=== PATIENT | male | born 1955 | race Caucasian/White ===

== ENCOUNTER 2016-09-25 14:17 | Outpatient (CLI) | payer OTHER ==
[~2016-09-25] VITALS: Ht 175.3 cm; Wt 74.1 kg
[2016-09-25 14:28] VITALS: BP_SYST 214; BP_SYST 227; BP_DIAS 89; BP_DIAS 91; PULSE 88; RESP 18; Ht 175.3 cm; Wt 74.1 kg
[2016-09-25] MEDS ORDERED: ATOR40TA68 PO (14:47)
[2016-09-25] MEDS ORDERED: CARV6.2579 PO (14:47)
[2016-09-25] MEDS ORDERED: ASPI-664 PO (14:47)
[2016-09-25] MEDS ORDERED: PANT40TA4 PO (14:47)
[2016-09-25] MEDS ORDERED: GLIP5TAB13 PO (14:47)
[2016-09-25] MEDS ORDERED: IPRA4AER INHALATION (14:47)
[2016-09-25] MEDS ORDERED: SITA1TAB5 PO (14:47)
[2016-09-25] MEDS ORDERED: AMLO-147 PO (14:47)
--- NOTE | 2016-09-25 14:57 | PN ---
Date/Time of Note Date/Time of Note DATE: 09/25/16 TIME: 14:49 Outpatient Progress Note Chief Complaint Sepsis/diabetes/hypertension/hyperkalemia HPI Sepsis/patient was recently hospitalized with multiple medical problem, no cough expectoration, no fever chill, patient feeling better, Diabetes/no polydipsia polyuria hypoglycemia, patient blood sugar under control , maximum blood sugar is 140, Hypertension/no headache or dizziness or lightheadedness, patient blood pressure significantly elevated, patient states that every time he goes to doctor's office blood pressure is always elevated, patient blood pressure at home is controlled, Hyperkalemia patient did have hyperkalemia in the hospital, and also had a renal insufficiency, patient feels fine at present, no cramps, no weakness or tiredness, Review of Systems Const: No Fever, no chills, no Wt. loss, no Fatigue, normal appetite, no diaphoresis. Eyes: No pain, no discharge, no redness, no visual change, no foreign body. ENT: No pain, no bleeding, no congestion, no sore throat, no dysphagia, no discharge or rhinitis. Lymph: No adenopathy, no tender nodes, no lymphedema. Resp: No SOB, no cough, no sputum, no wheezing, no chest pain. CV: No chest pain, no palpitaions, no KONG, no PND, no edema. GI: Normal appetite, no pain, no nausea, no vomiting, no diarrhea, no blood, no constipation. : No frequency, no urgency, no dysuria, no hematuria, no flank pain, no discharge, no bleeding. Musc: No bone/joint pain, no back pain, no neck pain, no knee pain, no restricted ROM. Skin: No rash, no skin lesions, no erythema, no laceration, no bruising, no pruritus. Neuro: No SMITH, no dizziness, no syncope, no seizure, no focal-weakness. Endo: No polyuria, no polydypsia, no dry-skin, no temp-intolerance. Psych: No hallucinations, no depression, no anxiety, no suicidal ideation. Ext: No edema, no pain, no ulcer, no weakness. Physical Exam General Appearance: A 61 year-old male who appears well-developed, well- nourished, in no acute distress. HEENT: Head normocephalic, atraumatic. Pupils equal, round, reactive to light and accommodate. Sclerae are no jaundice. Nasal turbinates pink without erythema or nasal discharge. Mucous membranes pink and moist without lesions. Oropharynx clear without any exudate or discharge. NECK: Supple. Trachea midline, No thyromegaly, No cervical lymphadenopathy, No mass, No carotid bruits, No JVD, Carotid pulses 2+ bilaterally. PULMONARY: Clear to auscultaion bilaterally, No retractions, Chest expansion symmetric bilaterally, no rales, no ronchi, no dulness on percussion. CARDIAC: Normal SI and S2, Regular rate and rythm, no murmur, gallop, or rub. GASTROINTESTINAL: Abdomen is soft, non-tender, Non Rigid, No distention, Positive bowel sounds x4 quadrants, Liver normal. SKIN: Warm, dry, no rash, no bruise, no echmosis. EXTREMITIES: Bilateral lower extremities normal, no edema, no phlabitus, pulse palpable, no contracture. MUSCULOSKELETAL: Spine Normal, Non-tender, Normal range of motion, No swelling, no deformity, no clubbing, or cyanosis, the patient has no edema to bilateral lower extremities, dorsalis pedis pulses palpable bilaterally. NEUROLOGIC: The patient is awake, alert, oriented, responding to yes/no questions appropriately, moving all extremities, cranial nerve intact, normal strenght, normal power, normal coordination, normal gait. Allergies Coded Allergies: No Known Drug Allergies (Verified Allergy, Unknown, 09/25/16) PMH Sepsis/diabetes/hypertension/hyperkalemia/history of A. fib/renal insufficiency/ hypocalcemia/lactic acidosis/UTI/anemia/metabolic acidosis/leukocytosis Social Hx No smoking no drinking, Family Hx Noncontributory Assessment/Plan Impression Sepsis resolved Diabetes Hypertension Hyperkalemia improved Plan Patient education done about diabetes hypertension sepsis and hyperkalemia, discussed about hyperkalemia and associated complication, Patient blood pressure significantly elevated, patient states that every time patient goes to doctor's office patient blood pressure is always elevated, this is happening since he was child, patient has a blood pressure cuff at home, Patient will check the blood pressure at home routinely, and if anything significantly elevated he will call the clinic, patient also advised to continue all the medication from the hospital, patient wants to add atenolol which she was taking at home before, if the blood pressure significantly elevated, and patient will bring the record next visit, Patient has all the medication, does not need any refill, Patient advised if any headache or dizziness to call us immediately, or any significant elevation of the blood pressure to call us, patient very high risk for repeated admission, Medications Home Meds Reported Medications Carvedilol* (Carvedilol*) 6.25 Mg Tablet, 6.25 MG PO BID, #60 TAB 09/25/16 Glipizide* (Glipizide*) 5 Mg Tablet, 5 MG PO DAILY, TAB 09/25/16 Pantoprazole* (Pantoprazole*) 40 Mg Tablet.dr, 40 MG PO AC BREAKFAST, TAB 09/25/16 Atorvastatin* (Atorvastatin*) 40 Mg Tablet, 40 MG PO QHS, #30 TAB 09/25/16 Albuterol/Ipratropium* (Combivent Respimat*) 20-100 Mcg/Inh - 4 Gm Aer.w.adap, 1 PUFF INHALATION QID for SHORTNESS OF BREATH, #1 INHALER 09/25/16 Sitagliptin Phos/Metformin HCl (Janumet 50-1,000 mg Tablet) 1 Each Tablet, 1 EACH PO BID, TAB 09/25/16 Amlodipine Besylate* (Amlodipine Besylate*) 10 Mg Tablet, 10 MG PO DAILY, #30 TAB 09/25/16 Aspirin (Low Dose Aspirin) 81 Mg Tablet.dr, 81 MG PO DAILY, #30 TAB 09/25/16 ANN TREJO MD Sep 25, 2016 14:57
== END 2016-09-25 16:45 | disposition home or self-care (01) ==
LOC: DCC 14:17 → EDBD 15:00 → DCC 16:45
PROVIDERS: ATTEND Internal Medicine
DX: E11.9 Type 2 diabetes mellitus without complications (principal); I10 Essential (primary) hypertension; E87.5 Hyperkalemia; I48.91 Unspecified atrial fibrillation; D64.9 Anemia, unspecified; Z79.82 Long term (current) use of aspirin; Z79.84 Long term (current) use of oral hypoglycemic drugs

== ENCOUNTER 2016-10-04 11:34 | Emergency (ER) | payer OTHER ==
[~2016-10-04] VITALS: Ht 167.6 cm; Wt 73.0 kg
[~2016-10-04 11:34] MED LIST: AMLO-147 PO; ASPI-664 PO; ATOR40TA68 PO; CARV6.2579 PO; GLIP5TAB13 PO; IPRA4AER INHALATION; PANT40TA4 PO; SITA1TAB5 PO
[2016-10-04 11:43] VITALS: Ht 167.6 cm; Wt 73.0 kg
[2016-10-04 12:30] LABS: ADD SCAN DIFF NO
[2016-10-04 12:31] LABS: BASOPHIL # 0.1 10^3/ul (0.0-0.1); BASOPHILS % 0.6 % (0.0-2.0); EOSINOPHILS # 0.3 10^3/ul (0.0-0.5); EOSINOPHILS % 3.9 % (0.0-7.0); HEMATOCRIT 39.1 % (42.0-52.0); HEMOGLOBIN 13.1 g/dl (14.0-18.0); LYMPHOCYTES # 1.6 10^3/ul (0.8-2.9); LYMPHOCYTES % 19.2 % (15.0-51.0); MEAN CORPUSCULAR HEMOGLOBIN 30.6 pg (29.0-33.0); MEAN CORPUSCULAR HGB CONC 33.5 g/dl (32.0-37.0); MEAN CORPUSCULAR VOLUME 91.4 fl (82.0-101.0); MONOCYTE # 0.6 10^3/ul (0.3-0.9); MONOCYTES % 6.8 % (0.0-11.0); NEUTROPHIL # 5.6 10^3/ul (1.6-7.5); NEUTROPHILS % 69.4 % (39.0-77.0); PLATELET COUNT 326 10^3/UL (140-415); RED BLOOD COUNT 4.28 10^6/ul (4.70-6.10); RED CELL DISTRIBUTION WIDTH 12.1 % (11.5-14.5); WHITE BLOOD COUNT 8.1 10^3/ul (4.8-10.8)
[2016-10-04] MEDS ORDERED: ATEN50TA PO (12:52)
[2016-10-04 12:54] LABS: ALBUMIN 5.2 g/dl (3.3-4.9); ALBUMIN/GLOBULIN RATIO 1.48; BILIRUBIN,INDIRECT 0.4 mg/dl (0-1.1); BILIRUBIN,TOTAL 0.4 mg/dl (0.2-1.3); CALCIUM 9.8 mg/dl (8.4-10.2); CREATININE 1.84 mg/dl (0.61-1.24); POTASSIUM 4.9 mmol/L (3.5-5.1); TOTAL PROTEIN 8.7 g/dl (6.1-8.1)
--- NOTE | 2016-10-04 14:08 | ERD ---
ER Documentation Chief Complaint Date/Time DATE: 10/04/16 TIME: 14:05 Chief Complaint Bloating and burping HPI This a 61-year-old male who is complaining that ever since he started taking omeprazole he has been having excessive burping and bloating region. He says is worse after eating. He says he has no abdominal pain whatsoever. He has noted nausea no diarrhea he is having normal bowel movements. He says that her eating he gets a lot of burping and excessive bloating and gas. He says when he was taking probiotics it was helping the symptoms that he has had before in the past. He says he wants to get back on them because he is that this is the same symptoms he had before that was helped by taking probiotics. ROS All systems reviewed and are negative except as per history of present illness. Medications Home Meds Reported Medications Atenolol* (Atenolol*) 50 Mg Tablet, 50 MG PO DAILY, #30 TAB 10/04/16 Carvedilol* (Carvedilol*) 6.25 Mg Tablet, 6.25 MG PO BID, #60 TAB 09/25/16 Glipizide* (Glipizide*) 5 Mg Tablet, 5 MG PO DAILY, TAB 09/25/16 Atorvastatin* (Atorvastatin*) 40 Mg Tablet, 40 MG PO QHS, #30 TAB 09/25/16 Albuterol/Ipratropium* (Combivent Respimat*) 20-100 Mcg/Inh - 4 Gm Aer.w.adap, 1 PUFF INHALATION QID for SHORTNESS OF BREATH, #1 INHALER 09/25/16 Sitagliptin Phos/Metformin HCl (Janumet 50-1,000 mg Tablet) 1 Each Tablet, 1 EACH PO BID, TAB 09/25/16 Amlodipine Besylate* (Amlodipine Besylate*) 10 Mg Tablet, 10 MG PO DAILY, #30 TAB 09/25/16 Aspirin (Low Dose Aspirin) 81 Mg Tablet.dr, 81 MG PO DAILY, #30 TAB 09/25/16 Discontinued Reported Medications Pantoprazole* (Pantoprazole*) 40 Mg Tablet.dr, 40 MG PO AC BREAKFAST, TAB 09/25/16 Allergies Allergies: Coded Allergies: No Known Drug Allergies (Verified Allergy, Unknown, 10/04/16) PMhx/Soc Medical and Surgical Hx: pt denies Medical Hx, pt denies Surgical Hx Hx Alcohol Use: No Hx Substance Use: No Hx Tobacco Use: No Smoking Status: Never smoker FmHx Family History: No coronary disease Physical Exam Vitals Vital Signs Date Time Temp Pulse Resp B/P Pulse Ox O2 Delivery O2 Flow Rate FiO2 10/04/16 11:43 97.3 71 20 208/88 98 Physical Exam Const: Well-developed, well-nourished Head: Atraumatic, normocephalic Eyes: Normal Conjunctiva, PERRLA, EOMI, normal sclera, no nystagmus ENT: Normal External Ears, Nose and Mouth, moist mucus membranes. Neck: Full range of motion. No meningismus, no lymphadenopathy. Resp: Clear to auscultation bilaterally, no wheezing, rhonchi, rales Cardio: Regular rate and rhythm, no murmurs, S1 S2 present Abd: Soft, non tender x 4, non distended. Normal bowel sounds, no guarding or rebound, no pulsitile abdominal masses or bruits Skin: No petechiae or rashes, no ecchymosis , no maculopapular rash Back: No midline or flank tenderness Ext: No cyanosis, or edema, FROM x 4, normal inspection, neurovascularly intact x 4 Neur: Awake and alert, STR 5/5 x 4, sensation intact x 4, no focal findings, cerebellum intact Psych: Normal Mood and Affect Result Diagram: 10/04/16 1200 10/04/16 1200 Results 24 hrs Laboratory Tests Test 10/04/16 12:00 White Blood Count 8.110^3/ul Red Blood Count 4.2810^6/ul Hemoglobin 13.1g/dl Hematocrit 39.1% Mean Corpuscular Volume 91.4fl Mean Corpuscular Hemoglobin 30.6pg Mean Corpuscular Hemoglobin Concent 33.5g/dl Red Cell Distribution Width 12.1% Platelet Count 13014^3/UL Mean Platelet Volume 9.0fl Neutrophils % 69.4% Lymphocytes % 19.2% Monocytes % 6.8% Eosinophils % 3.9% Basophils % 0.6% Nucleated Red Blood Cells % 0.0/100WBC Neutrophils # 5.610^3/ul Lymphocytes # 1.610^3/ul Monocytes # 0.610^3/ul Eosinophils # 0.310^3/ul Basophils # 0.110^3/ul Nucleated Red Blood Cells # 0.010^3/ul Sodium Level 141mmol/L Potassium Level 4.9mmol/L Chloride Level 106mmol/L Carbon Dioxide Level 21mmol/L Anion Gap 19 Blood Urea Nitrogen 17mg/dl Creatinine 1.84mg/dl Glucose Level 249mg/dl Calcium Level 9.8mg/dl Total Bilirubin 0.4mg/dl Direct Bilirubin 0.00mg/dl Indirect Bilirubin 0.4mg/dl Aspartate Amino Transf (AST/SGOT) 28IU/L Alanine Aminotransferase (ALT/SGPT) 48IU/L Alkaline Phosphatase 116IU/L Total Protein 8.7g/dl Albumin 5.2g/dl Globulin 3.50g/dl Albumin/Globulin Ratio 1.48 Procedures/MDM Patient has some renal insufficiency. I will have him follow-up with his primary care physician this week. His lab work looks relatively unremarkable. Will discharge home with a copy of his labs and follow-up with his doctor. He says he will get back on probiotics. He says he will hold the omeprazole for now Departure Diagnosis: Primary Impression: Renal insufficiency Additional Impressions: Belching Abdominal bloating Condition: Stable Patient Instructions: Renal Insufficiency HANNAH DUNN DO Oct 04, 2016 14:08
[2016-10-04 16:38] VITALS: BP 191/86; PULSE 70; RESP 18
== END 2016-10-04 14:30 | disposition home or self-care (01) ==
LOC: E/R 11:34
DX: N28.9 Disorder of kidney and ureter, unspecified (principal); R14.2 Eructation; Z79.82 Long term (current) use of aspirin
CPT/HCPCS: 80053; 85025; Z7502; 99283

== ENCOUNTER 2016-10-06 11:28 | Outpatient (CLI) | payer OTHER ==
[~2016-10-06] VITALS: Ht 167.6 cm; Wt 73.0 kg
[~2016-10-06 11:28] MED LIST changes: +ATEN50TA PO
[2016-10-06 11:39] VITALS: BP 196/88; PULSE 65; RESP 18; Ht 167.6 cm; Wt 73.0 kg
--- NOTE | 2016-10-06 12:01 | PN ---
Date/Time of Note Date/Time of Note DATE: 10/06/16 TIME: 11:54 Outpatient Progress Note Chief Complaint Burping and bloating/diabetes/hypertension/hyperlipidemia HPI Burping and bloating/patient has severe abdominal bloating and gas, and burping , patient has this problem for a while, it got worse with the Protonix, according to the patient and patient was seen in emergency room, Protonix was on hold, patient not taking any simethicone, Diabetes/no pleuritic supple due to hypoglycemia, gastroparesis, Hypertension/no headache or dizziness, lightheadedness, local focal weakness, Hyperlipidemia/no xanthoma, on medication, side effect, Review of Systems Const: No Fever, no chills, no Wt. loss, no Fatigue, normal appetite, no diaphoresis. Eyes: No pain, no discharge, no redness, no visual change, no foreign body. ENT: No pain, no bleeding, no congestion, no sore throat, no dysphagia, no discharge or rhinitis. Lymph: No adenopathy, no tender nodes, no lymphedema. Resp: No SOB, no cough, no sputum, no wheezing, no chest pain. CV: No chest pain, no palpitaions, no KONG, no PND, no edema. GI: Normal appetite, no pain, no nausea, no vomiting, abdominal bloating and sometimes cramps, and burping, no diarrhea, no blood, no constipation. : No frequency, no urgency, no dysuria, no hematuria, no flank pain, no discharge, no bleeding. Musc: No bone/joint pain, no back pain, no neck pain, no knee pain, no restricted ROM. Skin: No rash, no skin lesions, no erythema, no laceration, no bruising, no pruritus. Neuro: No SMITH, no dizziness, no syncope, no seizure, no focal-weakness. Endo: No polyuria, no polydypsia, no dry-skin, no temp-intolerance. Psych: No hallucinations, no depression, no anxiety, no suicidal ideation. Ext: No edema, no pain, no ulcer, no weakness. Physical Exam General Appearance: A 61 year-old male who appears well-developed, well- nourished, in no acute distress. HEENT: Head normocephalic, atraumatic. Pupils equal, round, reactive to light and accommodate. Sclerae are no jaundice. Nasal turbinates pink without erythema or nasal discharge. Mucous membranes pink and moist without lesions. Oropharynx clear without any exudate or discharge. NECK: Supple. Trachea midline, No thyromegaly, No cervical lymphadenopathy, No mass, No carotid bruits, No JVD, Carotid pulses 2+ bilaterally. PULMONARY: Clear to auscultaion bilaterally, No retractions, Chest expansion symmetric bilaterally, no rales, no ronchi, no dulness on percussion. CARDIAC: Normal SI and S2, Regular rate and rythm, no murmur, gallop, or rub. GASTROINTESTINAL: Abdomen is soft, non-tender, Non Rigid, No distention, Positive bowel sounds x4 quadrants, Liver normal. SKIN: Warm, dry, no rash, no bruise, no echmosis. EXTREMITIES: Bilateral lower extremities normal, no edema, no phlabitus, pulse palpable, no contracture. MUSCULOSKELETAL: Spine Normal, Non-tender, Normal range of motion, No swelling, no deformity, no clubbing, or cyanosis, the patient has no edema to bilateral lower extremities, dorsalis pedis pulses palpable bilaterally. NEUROLOGIC: The patient is awake, alert, oriented, responding to yes/no questions appropriately, moving all extremities, cranial nerve intact, normal strenght, normal power, normal coordination, normal gait. Allergies Coded Allergies: No Known Drug Allergies (Verified Allergy, Unknown, 10/04/16) PMH No change Social Hx No change Family Hx No change Assessment/Plan Impression Bloating and burping/anxiety Diabetes Hypertension Hyperlipidemia Renal insufficiency Plan Discussed with the patient in detail about patient's condition, patient has severe and anxiety problem, discussed about medication for anxiety, and habit forming, at present time patient wants to try on his own, Patient also has a lot of burping and flatulence, patient is not taking any medication, Gas-X or simethicone 1 or 2 tablet p.o. 4 times daily for 2 weeks if there is no response patient can follow with the primary care physician, and may start antispasmodic medication, Patient advised to relax, and meditate, patient also has anxiety problem, and that also causes a high blood pressure, patient blood pressure he brought from home is fairly stable except 1 or 2 readings which was 160, Continue all blood pressure medication, Patient will buy Gas-X and will start again today, Patient has slight renal insufficiency, patient to follow with the renal, Control of blood pressure, control weight, control blood sugar, Medications Home Meds Reported Medications Atenolol* (Atenolol*) 50 Mg Tablet, 50 MG PO DAILY, #30 TAB 10/04/16 Carvedilol* (Carvedilol*) 6.25 Mg Tablet, 6.25 MG PO BID, #60 TAB 09/25/16 Glipizide* (Glipizide*) 5 Mg Tablet, 5 MG PO DAILY, TAB 09/25/16 Atorvastatin* (Atorvastatin*) 40 Mg Tablet, 40 MG PO QHS, #30 TAB 09/25/16 Albuterol/Ipratropium* (Combivent Respimat*) 20-100 Mcg/Inh - 4 Gm Aer.w.adap, 1 PUFF INHALATION QID for SHORTNESS OF BREATH, #1 INHALER 09/25/16 Sitagliptin Phos/Metformin HCl (Janumet 50-1,000 mg Tablet) 1 Each Tablet, 1 EACH PO BID, TAB 09/25/16 Amlodipine Besylate* (Amlodipine Besylate*) 10 Mg Tablet, 10 MG PO DAILY, #30 TAB 09/25/16 Aspirin (Low Dose Aspirin) 81 Mg Tablet.dr, 81 MG PO DAILY, #30 TAB 09/25/16 Discontinued Reported Medications Pantoprazole* (Pantoprazole*) 40 Mg Tablet.dr, 40 MG PO AC BREAKFAST, TAB 09/25/16 ANN TREJO MD Oct 06, 2016 12:01
== END 2016-10-06 16:48 | disposition home or self-care (01) ==
LOC: DCC 11:28
PROVIDERS: ATTEND Internal Medicine
DX: R14.0 Abdominal distension (gaseous) (principal); F41.9 Anxiety disorder, unspecified; E11.9 Type 2 diabetes mellitus without complications; I10 Essential (primary) hypertension; E78.5 Hyperlipidemia, unspecified; N28.9 Disorder of kidney and ureter, unspecified; Z79.84 Long term (current) use of oral hypoglycemic drugs; Z79.82 Long term (current) use of aspirin